=== PATIENT | female | born 1945 | race Caucasian/White ===

== ENCOUNTER 2023-06-29 21:46 | Emergency (ER) | payer OTHER ==
[~2023-06-29] VITALS: Ht 154.9 cm; Wt 79.0 kg
[2023-06-29 21:59] VITALS: O2SAT 100
[2023-06-29] MEDS: ACETAMINOPHEN 325MG TABLET PO ONE (23:20)
[2023-06-30] MEDS ORDERED: ACET325T52 MT (01:09)
[2023-06-30] MEDS ORDERED: BO1 TP (01:09)
[2023-06-30] MEDS: BACITRACIN ZINC OINT UDPKT TOP ONE (01:36)
[2023-06-30] MEDS ORDERED: TRAM50TA3 MT (01:46)
[2023-06-30] MEDS: HYDROCODONE/ACETAMINOPHEN 5/325MG TABLET PO ONE (02:08)
[2023-06-30 02:11] VITALS: BP 170/75; PULSE 92; RESP 19; TEMP 98.4
== END 2023-06-30 04:39 | disposition home or self-care (01) ==
LOC: ER 21:46
DX: S09.93XA Unspecified injury of face, initial encounter (principal); S09.90XA Unspecified injury of head, initial encounter; E78.00 Pure hypercholesterolemia, unspecified; I10 Essential (primary) hypertension; S52.611A Displaced fracture of right ulna styloid process, initial encounter for closed fracture; W01.0XXA Fall on same level from slipping, tripping and stumbling without subsequent striking against object, initial encounter; Y93.89 Activity, other specified; Y92.89 Other specified places as the place of occurrence of the external cause; Y99.8 Other external cause status
CPT/HCPCS: 29125; 70486; 73110; 99284; A4565